=== PATIENT | female | born 2000 | race Caucasian/White ===

== ENCOUNTER 2022-05-04 13:51 | Emergency (ER) | payer OTHER, SELFPAY ==
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
[2022-05-04 13:54] VITALS: BP 125/74; PULSE 92; RESP 20; TEMP 36.6; O2SAT 100
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
[2022-05-04 14:37] LABS: Basophils Percent Auto 0.2 % (0.2-1.2); Eosinophils Percent Auto 0.2 % (0-4.4); Hematocrit 38.4 % (37.0-47.0); Immature Granulocyte Absolute 0.04 K/mm3 (0.00-0.031); Immature Granulocyte Percent A 0.4 % (0-0.5); Lymphocytes Absolute Auto 1.56 K/mm3 (0.9-3.2); Mean Corpuscular HGB Conc 33.9 g/dl (32-36); Mean Corpuscular Hemoglobin 30.5 pg (26-34); Mean Corpuscular Volume 90.1 fl (80-100); Mean Platelet Volume 9.1 fl (7.4-10.4); Monocytes Absolute Auto 0.7 K/mm3 (0.1-0.6); Monocytes Percent Auto 6.6 % (2.6-8.5); Neutrophils Absolute Auto 8.8 K/mm3 (1.3-6.7); Neutrophils Percent Auto 78.6 % (45.5-73.1); Platelet Count Result 348 k/mm3 (150-375); Red Blood Count 4.26 M/mm3 (4.2-5.4); Red Cell Distribution Width 12.8 % (11.5-14.5); White Blood Count 11.1 K/mm3 (4.5-10.0)
[2022-05-04 14:39] LABS: Add Urine Microscopic? YES; Appearance Urine Clear (Clear); Bilirubin Urine Negative (Negative); Blood Urine Negative (Negative); Color Urine Yellow (Yellow); Glucose Urine UA Negative (Negative); Ketones Urine Trace mg/dL (Negative); Leukocyte Esterase Ur Negative LEU/UL (Negative); Nitrate Urine Negative (Negative); Protein Urine 1+ mg/dL (Negative); Specific Grav Ur 1.015 (1.001-1.035); Urobilinogen Urine 0.2 mg/dL (<2.0); pH Urine 8.5 (5.0-9.0)
[2022-05-04 14:49] LABS: Mucus Urine Rare /lpf; Squamous Epithelial Cell Urine Few /hpf (Few); WBC Urine 0-3 /hpf
[2022-05-04 15:00] LABS: Amphetamine Screen Urine Negative (Negative); Barbiturate Screen Urine Negative (Negative); Benzodiazepines Screen Urine Negative (Negative); Cannabinoid Screen Urine Negative (Negative); Cocaine Screen Urine Negative (Negative); Methadone Screen Urine Negative (Negative); Opiate Screen Urine Negative (Negative); Phencyclidine Screen Urine Negative (Negative)
[2022-05-04 15:02] LABS: Alanine Aminotransferase 22 U/L (6-35); Albumin Level 5.1 g/dL (3.5-5.1); Alkaline Phosphatase 45 U/L (38-126); Anion Gap 10 mmol/L (8-16); Aspartate Amino Transferase 29 U/L (14-36); Bilirubin,Total 0.9 mg/dL (0.2-1.3); Blood Urea Nitrogen 13 mg/dL (7-17); Calcium 9.4 mg/dL (8.4-10.2); Carbon Dioxide 26 mmol/L (22-30); Chloride 106 mmol/L (98-107); Estimated CRCL calculation 94 ml/min; Estimated Glomerular Filt Rate > 60; Glucose 98 mg/dL (65-110); Potassium 3.8 mmol/L (3.4-5.0); Sodium 142 mmol/L (137-145)
[2022-05-04 15:03] LABS: Ethanol < 10 mg/dL (<10)
[2022-05-04 18:16] VITALS: BP 118/79; PULSE 84
== END 2022-05-04 18:10 | disposition home or self-care (01) ==
PROVIDERS: Emergency Provider Nurse Practitioner Family; PCP Physician Assistant
DX: S19.9XXA Unspecified injury of neck, initial encounter (principal); S80.02XA Contusion of left knee, initial encounter; M54.9 Dorsalgia, unspecified; M50.21 Other cervical disc displacement, high cervical region; V47.5XXA Car driver injured in collision with fixed or stationary object in traffic accident, initial encounter
CPT/HCPCS: 36415; 70450; 72040; 72125; 72131; 73502; 73562; 80053; 80307; 81001; 81025; 85025; 99284

== ENCOUNTER 2024-08-25 12:53 | Outpatient (CLI) | payer OTHER, SELFPAY ==
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
--- OUTSIDE RECORDS SUMMARY | 2024-08-26 05:04 | XMS_ITS | Data Portability ---
Author Organization [place] [facility]- Address # [address] [place] [address] Care Team Providers Care Drawbridge Tender Name Role Phone DERRELL MEDINA Refrigeration Mechanic Helper Assessment No assessment recorded. Plan of Treatment Reminders Order Date Submit Date Provider Last Modified By Organization Details Last Modified Time Details Appointments None recorded. [facility] test, [facility] [address], [place], [address], 9 17:18:38 rapid strep group A, throat 2018 [address], [place], [address], 9 12:04:56 [facility], [facility] [address], [place], [address], 9 15:24:52 rapid strep group A, throat 2018 019 n[facility] [address], [place], [address], 9 15:11:33 Referral None recorded. Procedures None recorded. Surgeries None recorded. Imaging None recorded. Medication Orders medroxypro gesterone 150 mg/mL intramuscu lar suspension 2018 019 [facility], [address] [place], [address], 9 15:23:15 azithromyc in 250 mg tablet 2018 [facility], [address] [place], [address], 9 14:28:56 ibuprofen 800 mg tablet 2018 [facility], [address] [place], [address], 9 14:28:51 amoxicilli n 875 mg tablet 2018 [facility], [address] [place], [address], 9 15:11:45 Tessalon Perles 100 mg capsule 2018 [facility], [address] [place] [address], [address], 9 15:11:49 Patient TargetsNo targets recorded. Patient Instructions Encounter Date Encounter Id Patient Instructions Last Modified By Organization Details Last Modified Time 02/11/2019 [id number] strep throat in teens: care instructions Not available 02/11/2019 12:04:56 05/04/2019 [id number] strep throat in teens: care instructions Not available 05/04/2019 15:11:33 Reason for Referral None Reported. Results Created Date Observation Date Name Description Value Unit Range Abnormal Flag Note LastModifiedBy Organization Detail LastModifiedTime 02/03/2002/02/2019 urina lysis , dipst ick Specific Preston >1.030 Not Available [facility] [address], [place], [address], 02/02/2019 16:17:51 02/03/20 19 02/02/2019 urina lysis , dipst ick pH 6.0 Not Available [facility] [address] [place] [address] [address], [place], [address], 02/02/2019 16:17:51 02/03/20 19 02/02/2019 urina lysis , dipst ick Leukocytes Negati ve Not Available [facility] [address] [place] [address] Dr Juarez, [place], [address], 02/02/2019 16:17:51 02/03/20 19 02/02/2019 urina lysis , dipst ick Nitrite negati ve Not Available [facility] [address] [place] [address] Dr Juarez, [place], [address], 02/02/2019 16:17:51 02/03/20 19 02/02/2019 urina lysis , dipst ick Urobilinogen 1 Not Available [facility] [address] [place] [address] Dr Juarez, [place], [address], 02/02/2019 16:17:51 02/03/20 19 02/02/2019 urina lysis , dipst ick Protein 100 Not Available [facility] [address] [place] [address] Dr Juarez, [place], [address], 02/02/2019 16:17:51 02/03/20 19 02/02/2019 urina lysis , dipst ick Blood Negati ve Not Available [facility] [address] [place] [address] Dr Juarez, [place], [address], 02/02/2019 16:17:51 02/03/20 19 02/02/2019 urina lysis , dipst ick Ketone Trace Not Available [facility] [address] [place] [address] Dr Juarez, [place], [address], 02/02/2019 16:17:51 02/03/20 19 02/02/2019 urina lysis , dipst ick Bilirubin Small Not Available [facility] [address] [place] [address] Dr Juarez, [place], [address], 02/02/2019 16:17:51 02/03/20 19 02/02/2019 urina lysis , dipst ick Glucose Negati ve Not Available [facility] [address] [place] [address] Dr Juarez, [place], [address], 02/02/2019 16:17:51 02/03/20 19 02/02/2019 urina lysis , dipst ick Appearance Clear Not Available [facility] [address] [place] [address] Dr Juarez, [place], [address], 02/02/2019 16:17:51 02/03/20 19 02/02/2019 urina lysis , dipst ick Color Yellow Not Available [facility] [address] [place] [address] Dr Juarez, [place], [address], 02/02/2019 16:17:51 02/10/20 19 02/09/2019 pregn bambi test, urine HCG negati ve Not Available [facility] [address] [place] [address] Dr Juarez, [place], [address], 02/09/2019 15:23:21 02/12/20 19 02/11/2019 rapid strep group A, throa t Result positi ve Not Available [facility] [address] [place] [address] Dr Juarez, [place], [address], 02/11/2019 11:47:13 04/15/20 19 04/15/2019 pregn bambi test, urine HCG negati ve Not Available [facility] [address] [place] [address] Dr Juarez, [place], [address], 04/15/2019 15:01:01 05/04/20 19 05/04/2019 rapid strep group A, throa t Result positi ve Not Available [facility] [address] [place] [address] Dr Juarez, [place], [address], 05/04/2019 14:57:32 Result Notes None recorded. Problems Name Problem SNOMED Code Status Onset Date Resolution Date Notes Provider Name and Address Organization Details Recorded Time Molluscu m contagio sum infectio n 59994019 Completed 02/04/[address] [place] [address], [address] , [place] [facility], 8 14:40:03 Acute sinusiti s 12592886 Completed 02/04/[address]ER[address]AND [address] [place], [place] [address], [place], [address] , [facility], 8 14:39:46 Acute conjunct ivitis 04353753 Completed 02/04/2018 SONIA BERTRAND [address] [place] [address] [address] [facility], [place], [address] , [facility], 8 14:40:08 Acute swimmer' s ear Completed 02/04/2018 SONIA BERTRAND [address] [place] [address], [place], [address] , [facility], 8 14:39:56 Acute upper respirat ory infectio n 37815126 Completed 02/04/2018 SONIA BERTRAND [address] [place] [address], [place], [address] , [facility], 8 14:40:15 Migraine without aura 71108431 Active Not Available [facility] 3 03:02:35 Contusio n of foot 18172996 Completed 02/16/2018 [place] - [facility], 8 14:43:58 Panic attack 913565054 Completed 02/04/2018 SONIA BERTRAND [address] [place] [address], [place], [address] , [facility], 8 14:39:59 Upper respirat ory infectio n 17060359 Completed 02/04/2018 SONIA BERTRAND [address] [place] [address], [address] , [facility], 8 14:40:11 Hashimot o thyroidi tis 99262768 Active 2018Sep 2018- followed by Darlyn Garrett APRN-FPA [address] [place] [address], [place], [address] , [facility], 9 14:49:45 Anxiety 49635752 Active 2018 sertralrafat cardenas prescrib ed by LOS MontelongoFPA [address] [facility] [address], [place], [address] , [place] [facility], 9 14:50:24 Problem Notes None recorded. Procedures Surgical History Date Name Laterality Status Provider Name and Address Organization Details Recorded Time 02/16/2018 I&D/SIMPLE completed Sarai Campos [facility], 02/16/2018 17:02:18 Imaging Results None recorded. Procedure Notes None recorded. Medical Equipment None Reported. Allergies No known drug allergies Medications Name Sig Start Date Stop Date Status Note LastModified by Organization Details LastModified Time amoxicilli n 500 mg capsule Take 1 capsule twice a day by oral route for 14 days. 02/04 completed Not Available Not Available Not Available Aviane 0.1 mg-20 mcg tablet TAKE 1 TABLET BY MOUTH ONCE DAILY 02/09 completed Not Available Not Available Not Available clindamyci n HCl 300 mg capsule Take 1 capsule every 6 hours by oral route for 7 days. 08/06 completed Not Available Not Available Not Available cetirizine 10 mg tablet TAKE 1 TABLET BY MOUTH ONCE DAILY active Not Available Not Available No t Available azithromyc in 250 mg tablet TAKE 2 TABLETS (500 MG) BY ORAL ROUTE ONCE DAILY FOR 1 DAY THEN 1 TABLET (250 MG) BY ORAL ROUTE ONCE DAILY FOR 4 DAYS 04/15 completed Not Available Not Available Not Available ibuprofen 800 mg tablet Take 1 tablet 3 times a day by oral route as needed for 7 days. 04/15 completed Not Available Not Available Not Available naproxen 250 mg tablet Take 1 tablet twice a day by oral route. 10/24 completed Not Available Not Available Not Available dexmethylp henidate 5 mg tablet active Not Available Not Available No t Available levothyrox ine 25 mcg tablet active Not Available Not Available Not Available dexmethylp henidate 10 mg tablet active Not Available Not Available Not Available Tessalon Perles 100 mg capsule Take 1 capsule 3 times a day by oral route as needed for 5 days. 2018 active Not Available Not Available Not Avai lable propranolo l 10 mg tablet active Not Available Not Available Not Available amoxicilli n 875 mg tablet Take 1 tablet every 12 hours by oral route for 10 days. 2018 active Not Available Not Available Not Avai lable Geodon 40 mg capsule active Not Available Not Available N ot Available carbamazep ine ER 200 mg tablet,ext ended release,12 hr active Not Available Not Available Not Available fluoxetine 20 mg tablet Take 2 tablets every day by oral route for 30 days. 02/04 completed Not Available Not Available Not Available ibuprofen 400 mg tablet 09/17 completed Not Available Not Available Not Available guanfacine 1 mg tablet active Not Available Not Available Not Available mirtazapin e 45 mg tablet active Not Available Not Available Not Available montelukas t 10 mg tablet Take 1 tablet every day by oral route for 30 days. 04/15 completed Not Available Not Available Not Available hydroxyzin e HCl 25 mg tablet TAKE 1 TABLET BY MOUTH EVERY 8 HOURS NEEDED 08/06 completed Not Available Not Available Not Available mupirocin 2 % topical ointment APPLY A SMALL AMOUNT TO THE AFFECTED AREA BY TOPICAL ROUTE 3 TIMES PER DAY for 5 days active Not Available Not Available No t Available mirtazapin e 15 mg tablet active Not Available Not Available Not Available azelastine 137 mcg (0.1 %) nasal spray USE 1 SPRAY(S) IN EACH NOSTRIL TWICE DAILY DIRECTED active Not Available Not Available No t Available Cheratussi n AC 10 mg-100 mg/5 mL oral liquid 09/17 completed Not Available Not Available Not Available methylphen idate ER 18 mg tablet,ext ended release 24 hr Take 1 tablet every day by oral route for 30 days. 10/24 completed Not Available Not Available Not Available naproxen sodium 275 mg tablet 09/17 completed Not Available Not Available Not Available fluticason e propionate 50 mcg/actuat ion nasal spray,susp ension USE 2 SPRAY(S) IN EACH NOSTRIL ONCE DAILY active Not Available Not Available No t Available sertraline 50 mg tablet active Not Available Not Available Not Available medroxypro gesterone 150 mg/mL intramuscu lar suspension Inject 1 mL every 3 months by intramusc ular route. active Not Available Not Available No t Available methylphen idate ER 27 mg tablet,ext ended release 24 hr Take 1 tablet every day by oral route for 30 days. 02/04 completed Not Available Not Available Not Available escitalopr am 10 mg tablet TAKE 1 TABLET BY MOUTH ONCE DAILY active Not Available Not Available No t Available Sprintec (28) 0.25 mg-35 mcg tablet Take 1 tablet every day by oral route. 02/02 completed Not Available Not Available Not Available Ciprodex 0.3 %-0.1 % ear drops,susp ension Instill 4 drops into affected ear(s) 2 times per day for 7 days active Not Available Not Available No t Available Focalin XR 10 mg capsule,ex tended release active Not Available Not Available Not Available Remeron active Not Available Not Avail able Not Available Focalin XR active Takes 5mg in the aftern oon. Not Available Not Available Not Available Focalin XR 15 mg capsule,ex tended release Take 1 capsule every day by oral route. active Not Available Not Available No t Available Creon 24,000-76, 000-120,00 0 unit capsule,de layed release 04/15 completed Not Available Not Available Not Available Moxeza 0.5 % eye drops Instill 1 drop twice a day by ophthalmi c route for 7 days. 01/17 completed Not Available Not Available Not Available Vitals Date Recorded Body height Body temperature Body mass index (BMI) Percentile per age and sex Body mass index (BMI) Body weight Heart rate Respiratory rate Systolic blood pressure Diastolic blood pressure Provider Name and Address Organization Details Last Updated DateTime 9 161.29 cm 97.5 [degF] 10 % 18.3 kg/m2 84781.2 g 80 /min 16 /min 108 mm[Hg] 66 mm[Hg] JAZMIN Vincent [address] [place] [address], [address] [place] [address] [facility], 9 14:39:41 Date Recorded Body height Body mass index (BMI) Body mass index (BMI) Percentile per age and sex Body weight Body temperature Heart rate Respiratory rate Systolic blood pressure Diastolic blood pressure Provider Name and Address Organization Details Last Updated DateTime 9 161.29 cm 18 kg/m2 7 % 97786.0 1 g 98.9 [degF] 92 /min 20 /min 112 mm[Hg] 72 mm[Hg] N[facility] 9 11:45:44 Date Recorded Body height Heart rate Respiratory rate Body mass index (BMI) Body mass index (BMI) Percentile per age and sex Body weight Body temperature Systolic blood pressure Diastolic blood pressure Provider Name and Address Organization Details Last Updated DateTime 9 161.29 cm 88 /min 20 /min 17.4 kg/m2 3 % 45100.2 4 g 98.4 [degF] 104 mm[Hg] 66 mm[Hg] [facility] 14:34:57 Date Recorded Body height Respiratory rate Body mass index (BMI) Percentile per age and sex Body mass index (BMI) Body weight Heart rate Body temperature Systolic blood pressure Diastolic blood pressure Provider Name and Address Organization Details Last Updated DateTime 9 161.29 cm 16 /min 1 % 16.7 kg/m2 33752.8 7 g 96 /min 99.2 [degF] 108 mm[Hg] 76 mm[Hg] Maria Guadalupe Rueda [facility] 9 14:57:06 Date Recorded Body height Body temperature Heart rate Respiratory rate Body mass index (BMI) Percentile per age and sex Body mass index (BMI) Body weight Oxygen saturation Oxygen saturation in Arterial blood by Pulse oximetry Systolic blood pressure Diastolic blood pressure Provider Name and Address Organization Details Last Updated DateTime 9 161.29 cm 97.9 [degF] 74 /min 20 /min 3 % 17.4 kg/m2 08106.2 4 g 97 % 97 % 106 mm[Hg] 72 mm[Hg] [facility] 14:22:57 Social History Question Answer Notes LastModified by Organizat ion Details LastModified Time Tobacco Smoking Status Never Smoker JAZMIN Vincent [address] [place] [address], [address], [facility], 03/24/2014 16:22:22 What Is Your Level Of Alcohol Consumption? None Information not available 03/24/2014 Animal Exposure? Yes 2 Dogs, 1cat Information not available 02/10/2012 Which Illicit Or Recreational Drugs Have You Used? None Information not available 03/24/2014 Have There Been Any Changes To Your Family Or Social Situation? No Information not available 03/24/2014 Are There Any Guns Present In Your Home? No Information not available 02/10/2012 What Is Your Home Situation? Both Parents Information not available 02/10/2012 Do You Use Insect Repellent Routinely? Yes Information not available 02/10/2012 What Was The Date Of Your Most Recent Tobacco Screening? 08/06/2018 Information not available 02/23/2019 What Is Your Parents' Marital Status? Information not available 02/10/2012 What Is The Name Of Your School? Getting GED Information not available 02/04/2018 Do You Use Your Seat Belt Or Car Seat Routinely? Yes Information not available 02/10/2012 Do You Have Any Siblings? 1 Sister Sister Lives Outside Of Home Information not available 02/04/2018 Do You Have Smoke And Carbon Monoxide Detectors In Your Home? Yes Information not available 02/10/2012 Are You Passively Exposed To Smoke? No Information not available 02/10/2012 Do You Use Sunscreen Routinely? Yes Information not available 02/10/2012 How Many Years Have You Smoked Tobacco? 0 Information not available 03/24/2014 Year In School 12 Informatio n not available 02/04/2018 Sex: Unknown Functional Status Question Answer Note LastModified by Organizat ion Details LastModified Time What is your exercise level? Occasional Information not available 02/04/2018 Mental Status None recorded. Family History Relationship Description Onset Age of this Age Resolved Age Notes LastModified by Organization Details LastModified Time Mother Hypertensive disorder previo usly record ed as High blood pressu re [email or web address] Not available 03/28/2015 15:16:40 Maternal Grandmother Type 2 diabetes mellitus without complication [email or web address] Not available 15:16:40 Father Hypertensive disorder previo usly record ed as High blood pressu re [email or web address] Not available 03/28/2015 15:16:40 Medical History Condition Response Diabetes N Other Developmental Delay N Bedwetting N ER or UC Visits Y Asthma / Wheezing N Skin problems N Frequent Ear Infections N Nasal Allergies N Hospitalizations N Frequent Headaches N ADD or ADHD Y Broken bones N Allergies N ear or hearing problems N Sleep Problems / Snoring N Concerns with Hearing or Vision N Constipation N Murmur / Cardiac N Albuterol / Nebulizer N Serious Injuries N History of UTI N Gynecological HistoryNo gynecological history recorded. Obstetrics History GPAL:G 0 P 0 0 0 0 Immunizations Vaccine Type Date Status Note Provider Nam e and Address Organization Details Recorded Time Hep A, ped/adol, 2 dose 3 completed Not Available [facility] 08/20/2019 02:12:00 IPV 2 completed Alisha Triplett null, [place] [facility], 01/30/2012 14:12:51 IPV 6 completed [place] [facility], 01/30/2012 14:12:51 DTaP 1 completed Alisha Triplett [place], [place] [facility], 01/30/2012 14:12:51 pneumococcal, unspecified formulation 1 completed Alisha Triplett [place] [facility], 01/30/2012 14:12:51 Hep B, unspecified formulation 0 completed Alisha Triplett [place] [facility], 01/30/2012 14:12:51 MMR 6 completed Alisha Triplett [place] [facility], 01/30/2012 14:12:51 pneumococcal, unspecified formulation 1 completed Al[place] Triplett [place] [facility], 01/30/2012 14:12:51 MMR 2 completed Alisha Triplett [place] [facility], 01/30/2012 14:12:51 Influenza, live, trivalent, intranasal 8 completed Alisha [place]tt [place] [facility], 01/30/2012 14:12:51 Hep B, unspecified formulation 0 completed Al[place] [facility], 01/30/2012 14:12:51 Hib, unspecified formulation 1 completed Al[place] Triplett [place] [facility], 01/30/2012 14:12:51 DTaP 1 completed Al[place] Triplett [place] [facility], 01/30/2012 14:12:51 pneumococcal, unspecified formulation 1 completed [place] [facility], 01/30/2012 14:12:51 IPV 1 completed [place] [facility], 01/30/2012 14:12:51 Hib, unspecified formulation 1 completed [place] [facility], 01/30/2012 14:12:51 Hib-Hep B 1 completed [place] [facility], 01/30/2012 14:12:51 Hib, unspecified formulation 2 completed [place] [facility], 01/30/2012 14:12:51 DTaP 6 completed [place] [facility], 01/30/2012 14:12:51 DTaP 2 completed [place] [facility], 01/30/2012 14:12:51 pneumococcal, unspecified formulation 2 completed [place] [facility], 01/30/2012 14:12:51 varicella 2 completed Al[place] Rtiplett [place] [facility], 01/30/2012 14:12:51 IPV 1 completed [place] [facility], 01/30/2012 14:12:51 DTaP 1 completed [place] [facility], 01/30/2012 14:12:51 Meningococcal MCV4O 8 completed Not Available [facility] 08/20/2019 02:13:08 Tdap 2 completed [facility] 08/20/2019 02:11:49 Hep A, ped/adol, 2 dose 2 completed Not Available [facility] 08/20/2019 02:11:59 Meningococcal MCV4O 2 completed Not Available [facility] 08/20/2019 02:12:14 varicella 2 completed Not Available [facility] 08/20/2019 02:11:53 Past Encounters Encounter ID Performer Location Encounter Start Date Encounter Closed Date Diagnosis/Indication Diagnosis SNOMED-CT Code Diagnosis ICD10 Code Diagnosis Note [id number] [address] [place], [place] [address] 01/03/2011 15:26:56 01/03/2011 16:28:14 [id number] [facility] [place] [address] 04/11/2011 09:33:12 04/14/2011 14:24:09 [id number] [facility] [place] [address] 12/12/2011 17:49:10 12/18/2011 12:40:49 [id number] Nona Mojica [facility] [address] [place] [address] 01/02/2012 14:30:19 01/07/2012 15:01:03 [id number] [facility] [place] [address] 02/10/2012 15:10:01 02/11/2012 14:36:50 [id number] Xiomara Griffin [facility] [place] [address] 03/08/2013 14:01:24 03/12/2013 11:47:17 [id number] Xiomara Griffin [facility] [address] [place] [address] 11/04/2013 13:55:38 11/05/2013 09:28:55 Contusion of foot [id number] Follow-up encounter [id number] [facility] [place] [address] 03/24/2014 16:08:38 03/27/2014 10:19:30 Well child [id number] Xiomara Griffin [facility] [address] [place] [address] 05/18/2014 10:22:30 05/19/2014 09:28:40 Panic attack [id number] SONIA BERTRAND [facility] [address] [place] [address] 08/30/2014 15:44:02 08/31/2014 15:21:02 Acute upper respiratory infection [id number] Upper resp iratory infection [id number] [facility] [address] [place] [address],[facility] [address] [place] [address] 03/28/2015 14:58:29 03/29/2015 12:04:41 Well child [id number] Sarai Campos [facility] [address] [place] [address],[facility] [address] [place] [address] 09/17/2016 13:56:14 09/22/2016 09:24:24 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 Will start methylphen idate ER 18 mg. Discussed how to take, side effects. Call in 1 week with update. May need to increase med at thiat time. Followup to office in 6 months. [id number] SONIA BERTRAND [facility] [address] [place] [address],[address] [address] 10/15/2016 11:12:31 10/16/2016 13:34:28 Pain of nose 672178657 J34.89 Nose pain s/p contusion to nose less than one week ago. Patient was hanging out of her car window and came up and hit the outside of her car door . No LOC. No epitaxis. Used motrin x1 without relief. Education given. Safety discussed. RICE therapy recommende d. [id number] [facility]AND [facility] [address] [place] [address],[address] [address] 10/24/2016 11:19:55 10/25/2016 10:18:34 Generalized anxiety disorder [id number] F41.1 Anxiety:Co unseling strongly advised. Written education given regarding medication s, hydration, side effects and effectiven ess. Follow up in 3 weeks without fail. Acute sinusitis [id number] J01.90 ? Sinusitis- Symptoms greater than 2 weeks with fever. Take oral antibiotic s as written. Rest. Drink plenty of fluids. F/U if no improvemen t in 48-72 hours. May have Tylenol or Ibuprofen for fever. May use nasal saline to relieve congestion . May have honey based cough syrup as needed for cough. [id number] [facility] [address] [place] [address],[address] [address] 02/04/2018 14:04:04 02/08/2018 09:17:02 Well child [id number] Z00.129 Well adolescent - appropriat e for growth and developmen tTrinh charles guidance was given to patient/aly collins. RTC in 1 year for next routine visit. I discussed with the parent the recommende d immunizati ons for the patient today; all questions were answered and the informatio nal handout was given. Also encouraged routine physical activity on a daily basis (at least 1 hour minimum per day). Proper dietary habits were discussed. Breast self exam discussed. Discussed need to finish GRE. Declined HPV today. Initial pr escription of oral contraception [id number] Z30.011 Control: Patient wishes to start oral control with this cycle. Patient instructed to start pills on thursday after start of menses. Patient instructed to use back up method the first week of starting the pill. Patient education given regarding prevention of STDs. Patient verbalized understand ing. Anxiety disorder [id number] F41.9 Intermitte nt anxiety attacks. Has tried depression medication without resolve. Strongly suggested counseling . Will trial new med, prn. [id number] [facility] [address] [place] [phone] 02/16/2018 14:05:25 02/17/2018 16:02:08 Abscess of axilla [id number] L02.411 Simple I&D done in office, see procedure note. Wash well with soap and water, apply Mupirocin twice daily. Clindamyci n as prescribed . Culture sent, will call with results. Ibuprofen for pain. Call with any new concerns or no improvemen t. [id number] Derrell Medina [facility] [address] [place] [address],[address] [address] 08/06/2018 16:52:58 08/09/2018 17:39:43 Acute upper respiratory infection [id number] J06.9 Mild sx, care as needed. Acne 33896869 L70.9 Large zit in R outer ear as source of her discomfort . Reactive lymphadenopathy [id number] R59.1 Due to URI and ear lesion. Will recheck in 3 weeks. Abnormal weight loss [id number] R63.4 She will increase intake and keep track on a calorie tracker ap, then RTC in 3 weeks to recheck. If not gaining, plan labs as she is down more than 10 lbs. 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 UA was unremarkab le - no culture sent. Suspicious for scoliosis on exam. Spinal series ordered (printed and given to patient). Recommende d heat/ice for 20 minutes multiple times a day, rest, and ibuprofen every 6 hours as needed for pain. Would refer to ortho with degree of curvature of greater than 20. Patient also requesting to start depo and wanting a one time refill on ritalin for test anxiety - recommende d f/u appointmen ts to further discuss. Thoracic back pain [id number] M54.6 [id number] [facility] [address] [place] [phone] 3 02/09/2019 14:29:04 03/15/2019 09:39:27 Uses depot contraception [id number] Z30.013 Control: Patient wishes to start oral control with this cycle. Discussed all control options. Patient education given regarding prevention of STDs. Patient verbalized understand ing. [id number] [facility] [address] [place] [phone] 3 02/11/2019 11:18:16 02/15/2019 09:21:36 Streptococcal sore throat 43985376 J02.0 Strep Throat: Take antibiotic s as written. Drink plenty of fluids. Purchase a new toothbrush in 48 hours after starting antibiotic s. Call the office if symptoms do not improve in 48-72 hours. Take Tylenol or Motrin for pain/fever . [id number] [facility] [address] [place] [address] [address] [place] [address] 04/15/2019 14:13:56 04/18/2019 17:19:11 Nausea [id number] R11.0 No emesis, exam is reassuring . Recommend bland diet, RTC if changes or worsening. [id number] LOS [facility]ANDFPA [facility] [address] [place] [phone] 3 05/04/2019 14:35:12 05/05/2019 10:00:08 Streptococcal sore throat [id number] J02.0 Strep Throat: Take antibiotic s as written. Drink plenty of fluids. Purchase a new toothbrush in 48 hours after starting antibiotic s. Call the office if symptoms do not improve in 48-72 hours. Take Tylenol or Motrin for pain/fever . [id number] Derrell Medina MD [facility] [address] [place] [phone] 3 05/06/2019 14:13:50 05/09/2019 11:41:17 Streptococcal sore throat 26660168 J02.0 Strep Throat: continue to take antibiotic s as written and symptom care as needed. Drink plenty of fluids. See back Thursday if having any fevers by then. Health Concerns Section Related Observation LastModified by Organization Detai ls LastModified Time None Recorded Concern Status LastModified by Organization Details LastModified Time None Recorded Advance Directives Directive None Recorded Payers Encounter Date Sequence Insurance Name Policy Number Policy Casanova Covered Member ID Casanova Member ID Guarantor Name 02/09/2019 1 [employer] [place] ([place]ICA[place]) [id number] Rogelio Horn [id number] Silas Horn 02/11/2019 1 [employer] [place] [id number] Rogelio Horn [id number] Silas Horn 04/15/2019 1 [employer] [place] [id number] 0003 Rogelio Horn [id number] Silas Horn 05/04/2019 1 [employer] [place] [id number] 0003 Rogelio Horn [id number] Silas Horn 05/06/2019 1 [employer] [place] ([place]) [id number] 0003 Rogelio Horn [id number] Silas Horn Notes Date Note Type Note Provider Name and Address Organization Details Recorded Time 02/09/2019 text/html Here to discuss depo. Here with mother. Sexually active. Does not want to get - and would like to discuss options. Uses condoms- occasionally. Denies STD's or STD like symptoms. Denies fever. Not good at taking pills on a regular basis- forgetful. SONIA BERTRAND [address] [facility] [address], [place], [address], [facility], 03/10/2019 13:54:19 02/11/2019 text/html Sore ThroatRepor sabrina bypatient.Throat Symptomshurts to swallow Upper respiratory symptomscough;nasal congestion/stuffy nose;nasal discharge Duration:started (sx's started yesterday.) Feverno fever (does not know.) Vomitingvomiting diarrheano diarrhea Headacheheadache Abdominal painabdominal pain SONIA BERTRAND [address] [facility] [address], [place], [address], [facility], 02/11/2019 12:05:05 04/15/2019 text/html Generic HPI TemplateReported bypatient.Notes:Here with self. Patient states she has been having abdominal pain on and off for a few weeks, patient complains of pain around umbilicus, states pain is aching (pain is 5/10 on scale) Good Po intake and UOP. Patient states she was nauseated yesterday but could not throw up. Denies vomiting or fevers. Pt states having increase in BM, has been having about 5-6 episodes daily, stool is soft brown. Denies blood. SONIA DEAL [address] [facility] [address], [place], [address], [facility], 04/15/2019 15:24:58 05/04/2019 text/html Sore ThroatRepor sabrina bypatient.Throat Symptomshurts to swallow Upper respiratory symptomscough;nasal congestion/stuffy nose;nasal discharge Duration:1 days Feverno fever Vomitingno vomiting diarrheano diarrhea Headacheheadache Abdominal painabdominal pain Context:normla sleep; normal appetite SONIA BERTRAND [address] [facility] [address], [place], [address], [facility], 05/04/2019 15:11:41 05/06/2019 text/html Upper Respirator y SymptomsReported bypatient.Location:[facility] Quality:cough;congeste d;hacking cough;hurts to swallow;throat pain Severity:mild Onset/Timing:gradual; actual date: (thursday) Context:no sick contacts; no foreign travel; non-smoker Modifying Factors:OTC medication (amoxicillin and motrin) Associated Symptoms:no vomiting; no diarrhea; no rash; no nausea;shortness of breath;difficulty breathing at night;sore throat; appetite normal; normal sleepNotes:here with self. Patient states she started to have URI sxs on thursday, patient was seen on thursday and tested + for strep and placed on amox which she is is currently taking bid. Patient states she had cough and congestion as well. Denies fevers/N/V/D. Good Po intake and UOP. Patient taking motrin for pain control, but no other symptom relief meds. Increased napping, bad MACHADO, some weakness. Not getting better and that concerns her. Derrell Medina MD [address] [facility] [address], [place], [address], [facility], 05/06/2019 14:42:50 OBGyn Episode No OBEpisode recorded.
== END 2024-08-25 12:54 | disposition home or self-care (01) ==
LOC: ANHIMG 12:55
PROVIDERS: Visit Provider Student in an Organized Health Care Education/Training Program
DX: N93.9 Abnormal uterine and vaginal bleeding, unspecified (principal)
CPT/HCPCS: 76830; 76856

== ENCOUNTER 2024-10-10 12:30 | Outpatient (CLI) | payer OTHER, SELFPAY ==
[2024-10-10 14:00] LABS: Free T4 Free Thyroxine 0.82 ng/dL (0.78-2.19)
--- OUTSIDE RECORDS SUMMARY | 2024-10-10 14:24 | XMS_ITS | Encounter Summary ---
Author Organization [facility] Healthcare Address [address] [place] [address] Care Team Providers Care Costing Analyst Name Role Phone Anjelica Vasquez MD Unavailable Geraldine Bauman Primary Care Provi chester Tremayne Lo PT Unavailable Unavailable Encounter Details Date Type Department Care Team (Late st Contact Info) Description 01/02/2023 Community Orders [facility] EpicCare Link Geraldine Bauman PA [address] [place] [address] Cervical mass (Primary Dx) Social History Tobacco Use Types Packs/Day Years Used Date Smoking Tobacco: Never Smokeless Tobacco: Never Alcohol Use Standard Drinks/Week Comments Never 0 (1 standard drink = 0.6 oz pur e alcohol) AUDIT-C Answer Date Recorded Q1: How often do you have a drink containing alc ohol? Never 12/07/2019 Average Number of Drinks Not on file 020 Frequency of Binge Drinking Not on file 01/2020 PHQ-2 Answer Date Recorded PHQ-2 Total Score (If total score is 3 or more points, staff should administer the PHQ-9) 0 05/07/2021 Comments No Sex and Gender Information Value Date Recorded Sex Assigned at Not on file Legal Sex Female 11:11 AM CODING QUALITY COORDINATOR Gender Identity Not on file Sexual Orientation Not on file documented as of this encounter Plan of Treatment Not on file documented as of this encounter Visit Diagnoses Diagnosis Cervical mass- Primary Other specified noninflammatory disorder of cervix documented in this encounter Additional Health Concerns Infection Onset Date Last Indicated Resolved Time COVID: Suspected 09/09/2023 09/09/2023 09/09/2023 9:19 PM CODING QUALITY COORDINATOR COVID: Suspected 11/02/2023 11/02/2023 11/02/2023 12:32 PM CDT COVID: Suspected 11/02/2023 11/02/2023 11/02/2023 8:08 PM CDT documented as of this encounter Care Teams Costing Analyst Relationship Specialty Start Date End Date Geraldine Bauman PA [address] [place] [address] PCP - General 10/12/21 Anjelica Vasquez MD Endocrinology 12/07/19 Tremayne Lo PT Physical Therapist Physical Therapy 06/20/22 documented as of this encounter
--- OUTSIDE RECORDS SUMMARY | 2024-10-10 14:24 | XMS_ITS | Data Portability ---
Author Organization [place] - [facility]- Address # [address] [place] [address] Care Team Providers Care Press Tender Name Role Phone DERRELL MEDINA Salvage Diver Assessment No assessment recorded. Plan of Treatment Reminders Order Date Submit Date Provider Last Modified By Organization Details Last Modified Time Details Appointments None recorded. Lab rapid strep group A, throat [email or web address], [address], [place], [address], 9 15:11:33 test, urine [address], [place], [address], 9 15:24:52 rapid strep group A, throat 2018 [address] [facility] [address], [place], [address], 9 12:04:56 test, urine 2018 019 [facility], [place], [address], 9 17:18:38 Referral None recorded. Procedures None recorded. Surgeries None recorded. Imaging None recorded. Medication Orders amoxicilli n 875 mg tablet 2018 019 INTERFACE [facility], [address] [place], [address], 9 15:11:45 Transalchristiano Perles 100 mg capsule 2018 019 [facility], [address] [place], [address], 9 15:11:49 azithromyc in 250 mg tablet 2018 019 [facility], [address] [place], [address], 9 14:28:56 ibuprofen 800 mg tablet 2018 019 [facility], [address] [place], [address], 9 14:28:51 medroxypro gesterone 150 mg/mL intramuscu lar suspension 2018 [facility], [address] [place] [address], [address], 9 15:23:15 Patient TargetsNo targets recorded. Patient Instructions Encounter Date Encounter Id Patient Instructions Last Modified By Organization Details Last Modified Time 02/11/2019 [id number] strep throat in teens: care instructions Not available 02/11/2019 12:04:56 05/04/2019 [id number] strep throat in teens: care instructions Not available 05/04/2019 15:11:33 Reason for Referral None Reported. Results Created Date Observation Date Name Description Value Unit Range Abnormal Flag Note LastModifiedBy Organization Detail LastModifiedTime 02/03/2002/02/2019 urina lysis , dipst ick Specific Bigelow >1.030 Not Available [facility] [address] [place] [address] [address], [place], [address], 02/02/2019 16:17:51 02/03/20 19 02/02/2019 urina lysis , dipst ick pH 6.0 Not Available [facility] [address] [place] [address] [address], [place], [address], 02/02/2019 16:17:51 02/03/20 19 02/02/2019 urina lysis , dipst ick Leukocytes Negati ve Not Available [facility] [address] [place] [address] Dr Juarez, [place], [address], 02/02/2019 16:17:51 02/03/20 19 02/02/2019 urina lysis , dipst ick Nitrite negati ve Not Available [facility] [address] [place] [address] Dr Juarez, [place], [address], 02/02/2019 16:17:51 02/03/20 19 02/02/2019 urina lysis , dipst ick Urobilinogen 1 Not Available [facility] [address] [place] [address] Dr Juarez, [place], [address], 02/02/2019 16:17:51 02/03/20 19 02/02/2019 urina lysis , dipst ick Protein 100 Not Available [facility] [address] [place] [address] Dr Juarez, [place], [address], 02/02/2019 16:17:51 02/03/20 19 02/02/2019 urina lysis , dipst ick Blood Negati ve Not Available [facility] [address] [place] [address] Dr Juarez, [place], [address], 02/02/2019 16:17:51 02/03/20 19 02/02/2019 urina lysis , dipst ick Ketone Trace Not Available [facility] [address] [place] [address] Dr Juarez, [place], [address], 02/02/2019 16:17:51 02/03/20 19 02/02/2019 urina lysis , dipst ick Bilirubin Small Not Available [facility] [address] [place] [address] Dr Juarez, [place], [address], 02/02/2019 16:17:51 02/03/20 19 02/02/2019 urina lysis , dipst ick Glucose Negati ve Not Available [facility] [address] [place] [address] Dr Juarez, [place], [address], 02/02/2019 16:17:51 02/03/20 19 02/02/2019 urina lysis , dipst ick Appearance Clear Not Available [facility] [address] [place] [address] Dr Juarez, [place], [address], 02/02/2019 16:17:51 02/03/20 19 02/02/2019 urina lysis , dipst ick Color Yellow Not Available [facility] [address] [place] [address] Dr Juarez, [place], [address], 02/02/2019 16:17:51 02/10/20 19 02/09/2019 pregn bambi test, urine HCG negati ve Not Available [facility] [address] [place] [address] Dr Juarez, [place], [address], 02/09/2019 15:23:21 02/12/20 19 02/11/2019 rapid strep group A, throa t Result positi ve Not Available [facility] [address] [place] [address] Dr Juarez, [place], [address], 02/11/2019 11:47:13 04/15/20 19 04/15/2019 pregn bambi test, urine HCG negati ve Not Available [facility] [address] [place] [address] Dr Juarez, [place], [address], 04/15/2019 15:01:01 05/04/20 19 05/04/2019 rapid strep group A, throa t Result positi ve Not Available [facility] [address] [place] [address] Dr Juarez, [place], [address], 05/04/2019 14:57:32 Result Notes None recorded. Problems Name Problem SNOMED Code Status Onset Date Resolution Date Notes Provider Name and Address Organization Details Recorded Time Molluscu m contagio sum infectio n 74579069 Completed 02/04/[address]AND [address] [place] [address], [address] , [place] [facility], 8 14:40:03 Acute sinusiti s 32589602 Completed 02/04/[address]TRAND [address] [place], [place] [address], [place], [address] , [facility], 8 14:39:46 Acute conjunct ivitis 04926613 Completed 02/04/2018 SONIA BERTRAND [address] [place] [address] [address] [facility], [place], [address] , [facility], 8 14:40:08 Acute swimmer' s ear Completed 02/04/[address]TRAND [address] [place] [address], [place], [address] , [facility], 8 14:39:56 Acute upper respirat ory infectio n 32079408 Completed 02/04/2018 SONIA BERTRAND [address] [place] [address], [place], [address] , [facility], 8 14:40:15 Migraine without aura 11972231 Active Not Available [facility] 3 03:02:35 Contusio n of foot 71976731 Completed 02/16/2018 [place] [facility], 8 14:43:58 Panic attack 681809951 Completed 02/04/2018 SONIA BERTRAND [address] [place] [address], [place], [address] , [facility], 8 14:39:59 Upper respirat ory infectio n 94234599 Completed 02/04/2018 SONIA BERTRAND [address] [place] [address], [address] , [facility], 8 14:40:11 Hashimot o thyroidi tis 51469824 Active 2018Sep 2018- followed by Darlyn Garrett APRN-FPA [address] [place] [address], [place], [address] , [facility], 9 14:49:45 Anxiety 06105481 Active 2018 sertralrafat cardenas prescrib ed by LOS MontelongoFPA [address] [facility] [address], [place], [address] , [place] [facility], 9 14:50:24 Problem Notes None recorded. Procedures Surgical History Date Name Laterality Status Provider Name and Address Organization Details Recorded Time 02/16/2018 I&D/SIMPLE completed Sarai Campos [facility], 02/16/2018 17:02:18 Imaging Results None recorded. [...] cm 97.5 [degF] 10 % 18.3 kg/m2 49283.2 g 80 /min 16 /min 108 mm[Hg] 66 mm[Hg] JAZMIN Vincent [address] [place] [address], [address] [place] [address] [facility], 9 14:39:41 Date Recorded Body height Body mass index (BMI) Body mass index (BMI) Percentile per age and sex Body weight Body temperature Heart rate Respiratory rate Systolic blood pressure Diastolic blood pressure Provider Name and Address Organization Details Last Updated DateTime 9 161.29 cm 18 kg/m2 7 % 33970.0 1 g 98.9 [degF] 92 /min 20 /min 112 mm[Hg] 72 mm[Hg] Nona Mojica [facility], 9 11:45:44 Date Recorded Body height Heart rate Respiratory rate Body mass index (BMI) Body mass index (BMI) Percentile per age and sex Body weight Body temperature Systolic blood pressure Diastolic blood pressure Provider Name and Address Organization Details Last Updated DateTime 9 161.29 cm 88 /min 20 /min 17.4 kg/m2 3 % 72195.2 4 g 98.4 [degF] 104 mm[Hg] 66 mm[Hg] [facility] 9 14:34:57 Date Recorded Body height Respiratory rate Body mass index (BMI) Percentile per age and sex Body mass index (BMI) Body weight Heart rate Body temperature Systolic blood pressure Diastolic blood pressure Provider Name and Address Organization Details Last Updated DateTime 9 161.29 cm 16 /min 1 % 16.7 kg/m2 19003.8 7 g 96 /min 99.2 [degF] 108 mm[Hg] 76 mm[Hg] Maria Guadalupe Rueda [facility], 9 14:57:06 Date Recorded Body height Body [...] /min 20 /min 3 % 17.4 kg/m2 45683.2 4 g 97 % 97 % 106 mm[Hg] 72 mm[Hg] [facility]gelia [facility], 9 14:22:57 Social History Question Answer Notes LastModified by Organizat ion Details LastModified Time Tobacco Smoking Status Never Smoker JAZMIN Vincent [address] [place] [address], [address], [facility], 03/24/2014 16:22:22 What Is Your Level [...] record ed as High blood pressu re [email or web address] Not available 03/28/2015 15:16:40 Maternal Grandmother Type 2 diabetes mellitus without complication [email or web address] Not available 15:16:40 Father Hypertensive disorder previo usly record ed as High blood pressu re [email or web address] Not available 03/28/2015 15:16:40 Medical History Condition [...] ped/adol, 2 dose 3 completed Not Available [facility] 08/20/2019 02:12:00 IPV 2 completed Alisha Triplett [place], [place] [facility], 01/30/2012 14:12:51 IPV 6 completed Al[place] [facility], 01/30/2012 14:12:51 DTaP 1 completed Alisha Triplett [place], [place] [facility], 01/30/2012 14:12:51 pneumococcal, unspecified formulation 1 completed Alisha Triplett [place] [facility], 01/30/2012 14:12:51 Hep B, unspecified formulation 0 completed Alisha Triplett [place] [facility], 01/30/2012 14:12:51 MMR 6 completed Alisha Triplett [place] [facility], 01/30/2012 14:12:51 pneumococcal, unspecified formulation 1 completed Alisha Triplett [place] [facility], 01/30/2012 14:12:51 MMR 2 completed Alisha Triplett [place] [facility], 01/30/2012 14:12:51 Influenza, live, trivalent, intranasal 8 completed Alisha Triplett [place], [place] [facility], 01/30/2012 14:12:51 Hep B, unspecified formulation 0 completed Alisha Triplett [place] [facility], 01/30/2012 14:12:51 Hib, unspecified formulation 1 completed Alisha Triplett [place], [place] [facility], 01/30/2012 14:12:51 DTaP 1 completed Alisha Triplett [place], [place] [facility], 01/30/2012 14:12:51 pneumococcal, [...] [facility]LIM[facility], 01/30/2012 14:12:51 varicella 2 completed [place] [facility], 01/30/2012 14:12:51 IPV 1 completed [place] [facility], 01/30/2012 14:12:51 DTaP 1 completed Al[place] [facility], 01/30/2012 14:12:51 Meningococcal MCV4O 8 completed Not Available [facility] 08/20/2019 02:13:08 Tdap 2 completed Not Available [facility] 08/20/2019 02:11:49 Hep A, ped/adol, 2 dose 2 completed Not Available [facility] 08/20/2019 02:11:59 Meningococcal MCV4O 2 completed Not Available [facility] 08/20/2019 02:12:14 varicella 2 completed Not Available [facility] 08/20/2019 02:11:53 Past Encounters Encounter ID Performer Location Encounter Start Date Encounter Closed Date Diagnosis/Indication Diagnosis SNOMED-CT Code Diagnosis ICD10 Code Diagnosis Note [id number] [facility] [address] [place], [place] [address] 01/03/2011 15:26:56 01/03/2011 16:28:14 [id number] [facility] [address] [place] [address] 04/11/2011 09:33:12 04/14/2011 14:24:09 [id number] [facility] [address] [place] [address] 12/12/2011 17:49:10 12/18/2011 12:40:49 [id number] Nona Mojica [facility] [address] [place] [address] 01/02/2012 14:30:19 01/07/2012 15:01:03 [id number] [facility] [place] [address] 02/10/2012 15:10:01 02/11/2012 14:36:50 [id number] Xiomara Griffin [facility] [address] [place] [address] 03/08/2013 14:01:24 03/12/2013 11:47:17 [id number] Xiomara Griffin [facility] [address] [place] [address] 11/04/2013 13:55:38 11/05/2013 09:28:55 Contusion of foot [id number] Follow-up encounter [id number] [facility] [place] [address] 03/24/2014 16:08:38 03/27/2014 10:19:30 Well child [id number] Xiomara Griffin [facility] [address] [place] [address] 05/18/2014 10:22:30 05/19/2014 09:28:40 Panic attack [id number] SONIA BERTRAND [facility] [address] [address] [place] [address] 08/30/2014 15:44:02 08/31/2014 15:21:02 Acute upper respiratory infection 48574146 Upper resp iratory infection 70617176 [id number] Janneth Johnson [facility] [address] [place] [address],[facility] [address] [place] [address] 03/28/2015 14:58:29 03/29/2015 12:04:41 Well child [id number] Sarai Campos [facility] E [address] [place] [address],[facility] [address] [place] [address] 09/17/2016 13:56:14 09/22/2016 09:24:24 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 Will start methylphen idate ER 18 mg. Discussed how to take, side effects. Call in 1 week with update. May need to increase med at thiat time. Followup to office in 6 months. [id number] SONIA BERTRAND [facility] E [address] [place] [address],[address] [address] 10/15/2016 11:12:31 10/16/2016 13:34:28 Pain of nose 248403238 J34.89 Nose pain s/p contusion to nose less than one week ago. Patient was hanging out of her car window and came up and hit the outside of her car door . No LOC. No epitaxis. Used motrin x1 without relief. Education given. Safety discussed. RICE therapy recommende d. [id number] SONIA BERTRAND [facility] E [address] [place] [address],[address] [address] 10/24/2016 11:19:55 10/25/2016 10:18:34 Generalized anxiety disorder 81498783 F41.1 Anxiety:Co unseling strongly advised. Written education given regarding medication s, hydration, side effects and effectiven ess. Follow up in 3 weeks without fail. Acute sinusitis 11193428 J01.90 Sinusitis- Symptoms greater than 2 weeks with fever. Take oral antibiotic s as written. Rest. Drink plenty of fluids. F/U if no improvemen t in 48-72 hours. May have Tylenol or Ibuprofen for fever. May use nasal saline to relieve congestion . May have honey based cough syrup as needed for cough. [id number] SONIA BERTRAND [facility] [address] [place] [address] 02/04/2018 14:04:04 02/08/2018 09:17:02 Well child 199839635 Z00.129 Well adolescent - appropriat e for growth and developmen tTrinh Contrerasato ry guidance was given to patient/aly collins. RTC [...] today. Initial pr escription of oral contraception 152900578 Z30.011 Control: Patient wishes to start oral control with this cycle. Patient instructed to start pills on thursday after start of menses. Patient instructed to use back up method the first week of starting the pill. Patient education given regarding prevention of STDs. Patient verbalized understand ing. Anxiety disorder 2585918 06 F41.9 Intermitte nt anxiety attacks. Has tried depression medication without resolve. Strongly suggested counseling . Will trial new med, prn. [id number] Sarai Campos [facility] [address] [place] [address] 02/16/2018 14:05:25 02/17/2018 16:02:08 Abscess of axilla 98714196 L02.411 Simple I&D done in office, see procedure note. Wash well with soap and water, apply Mupirocin twice daily. Clindamyci n as prescribed . Culture sent, will call with results. Ibuprofen for pain. Call with any new concerns or no improvemen t. [id number] Derrell Medina [facility] [address] [place] [address],[address] [address] 08/06/2018 16:52:58 08/09/2018 17:39:43 Acute upper respiratory infection 03018169 J06.9 Mild sx, care as needed. Acne 40402513 L70.9 Large zit in R outer ear as source of her discomfort . Reactive lymphadenopathy 108761857 R59.1 Due to URI and ear lesion. Will recheck in 3 weeks. Abnormal weight loss 267 168409 R63.4 She will increase intake and keep track on a calorie tracker ap, then RTC in 3 weeks to recheck. If not gaining, plan labs as she is down more than 10 lbs. 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 Thoracic back pain 84681 8004 M54.6 [id number] SONIA BERTRAND [facility] [address] [place] [address] 02/09/2019 14:29:04 03/15/2019 09:39:27 Uses depot contraception 085193513 Z30.013 Control: Patient wishes to start oral control with this cycle. Discussed all control options. Patient education given regarding prevention of STDs. Patient verbalized understand ing. [id number] SONIA BERTRAND [facility] [address] [place] [address],[address] [address] 02/11/2019 11:18:16 02/15/2019 09:21:36 Streptococcal sore throat 45175703 J02.0 Strep Throat: Take antibiotic s as written. Drink plenty of fluids. Purchase a new toothbrush in 48 hours after starting antibiotic s. Call the office if symptoms do not improve in 48-72 hours. Take Tylenol or Motrin for pain/fever . [id number] SONIA DEAL [facility] [address] [place] [address] 04/15/2019 14:13:56 04/18/2019 17:19:11 Nausea 711996315 R11.0 No emesis, exam is reassuring . Recommend bland diet, RTC if changes or worsening. [id number] SONIA BERTRAND [facility] [address] [address] 05/04/2019 14:35:12 05/05/2019 10:00:08 Streptococcal sore throat 51091851 J02.0 Strep Throat: Take antibiotic s as written. Drink plenty of fluids. Purchase a new toothbrush in 48 hours after starting antibiotic s. Call the office if symptoms do not improve in 48-72 hours. Take Tylenol or Motrin for pain/fever . [id number] Derrell Medina MD PEDIATRIC [address] [address] 05/06/2019 14:13:50 05/09/2019 11:41:17 Streptococcal sore throat 16022227 J02.0 Strep Throat: continue to take antibiotic [...] Casanova Member ID Guarantor Name 02/09/2019 1 [facility] [id number] Rogelio Horn [id number] Silas Horn 02/11/2019 1 [facility] [id number] Rogelio Horn [id number] Silas Horn 04/15/2019 1 [facility] [id number] 0003 Rogelio Horn [id number] Silas Horn 05/04/2019 1 [facility] (MEDICAID HMO) [id number] Rogelio Horn [id number] Silas Horn 05/06/2019 1 [facility] (MEDICAID HMO) [id number] 0003 [facility] Colby Horn [id number] Silas Horn Notes Date Note Type Note Provider Name and Address Organization Details Recorded Time 02/09/2019 text/html Here to discuss depo. Here with mother. Sexually active. Does not want to get - and would like to discuss options. Uses condoms- occasionally. Denies STD's or STD like symptoms. Denies fever. Not good at taking pills on a regular basis- forgetful. SONIA BERTRAND [address] [facility] [address], [address], [facility], 03/10/2019 13:54:19 02/11/2019 text/html Sore ThroatRepor sabrina bypatient.Throat Symptomshurts to swallow Upper respiratory symptomscough;nasal congestion/stuffy nose;nasal discharge Duration:started (sx's started yesterday.) Feverno fever (does not know.) Vomitingvomiting diarrheano diarrhea Headacheheadache Abdominal painabdominal pain SONIA BERTRAND 4 [facility] [address], [address], [facility], 02/11/2019 12:05:05 04/15/2019 text/html Generic HPI TemplateReported [...] soft brown. Denies blood. SONIA DEAL [address] [facility] [address], [place], [address], [facility], 04/15/2019 15:24:58 05/04/2019 text/html Sore ThroatRepor sabrina bypatient.Throat Symptomshurts to swallow Upper respiratory symptomscough;nasal congestion/stuffy nose;nasal discharge Duration:1 days Feverno fever Vomitingno vomiting diarrheano diarrhea Headacheheadache Abdominal painabdominal pain Context:normla sleep; normal appetite SONIA BERTRAND [address] [facility] [address], [place], [address], [facility], 05/04/2019 15:11:41 05/06/2019 text/html Upper Respirator y SymptomsReported bypatient.Location:[facility] Quality:cough;congeste d;hacking cough;hurts to swallow;throat pain Severity:mild [...] that concerns her. Derrell Medina MD [address] [facility] [address], [place], [address], [facility], 05/06/2019 14:42:50 OBGyn Episode No OBEpisode recorded.
--- OUTSIDE RECORDS SUMMARY | 2024-10-10 14:24 | XMS_ITS | Referral Summary ---
Author Organization [facility] Address [address] [place] [address] Care Team Providers Care Central Station Operator Name Role Phone Anjelica Vasquez MD Unavailable Geraldine Bauman Primary Care Provi chester Tremayne Lo PT Unavailable Unavailable Allergies No known active allergies Medications medroxyPROGEST ERone 150 mg/mL injection Inject 1 ml (150 mg) intramuscularly every 3 months 06/25/20 22 Active SUMAtriptan (IMITREX) 50 mg tablet TAKE 1 TABLET AT ONSET OF MIGRAINE MAY REPEAT DOSE 1 TIME AFTER AT LEAST 2 HOURS 09/02/19 24 Active cetirizine (ZyrTEC) 10 mg tablet Take 1 tablet (10 mg total) by mouth daily 10/13/19 24 Active fluticasone propionate (FLONASE) 50 mcg/actuation nasal spray USE 1 SPRAY(S) IN EACH NOSTRIL ONCE DAILY 10/13/19 24 Active metroNIDAZOLE (FLAGYL) 500 mg tablet Take 1 tablet (500 mg total) by mouth 2 (two) times a day 12/17/19 24 Active dextroamphetam ine-amphetamin e XR (ADDERALL XR) 10 mg 24 hr capsule Take 1 capsule (10 mg total) by mouth daily 12/11/19 24 Active meloxicam (MOBIC) 15 mg tabletIndicati ons:Chronic pain of left knee,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 Take with food 30 tablet 1 12/31/19 24 Active escitalopram (LEXAPRO) 20 mg tablet Take 1 tablet (20 mg total) by mouth daily 01/18/20 24 Active LORazepam (ATIVAN) 1 mg tablet Take 1 tablet (1 mg total) by mouth daily as needed 01/18/20 24 Active cyclobenzaprin e (FLEXERIL) 5 mg tablet Take 1 tablet (5 mg total) by mouth 2 (two) times a day as needed 03/03/20 24 Active azelastine (ASTELIN) 137 mcg (0.1 %) nasal spray Administer 1 spray into each nostril 2 (two) times a day Active Active Problems Problem Noted Date Diagnosed Date Migraine without aura 11/02/2023 Molluscum contagiosum infection 11/02/2023 Panic attack 11/02/2023 Cervical mass 01/21/2023 Overview (01/29/2024): -Pap smear 06/25/22: NILM -Had AUB following pap, started on DMPA 09/2022 w/ no resolution -US 12/2022 that showed cervical mass measuring 1.5x1.4x1.9cm, otherwise normal b/l ovaries and uterus. -MRI 12/31/22 with soft tissue mass 0.8x0.7x1.6cm in endocervical canal, stromal invasion 0.3cm -Clinic visit 01/21/23: Reviewed imaging. Pap smear ASCUS/HPV-. 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 -PET 01/2023 w/ likely physiologic cervical uptake -Follow-up 05/2023 w/ normal exam. Discussed work-up to this date benign, will follow-up for subsequent exam in 3 mths and repeat pap 1 year from colpo. -F/u 09/25/23 w/ normal colposcopy. -Pap 01/29/24 today, exam WNL Plan -Follow-up on pap. 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 Vasquez (endo) Assessment & Plan (12/07/2019 1:04 PM CDT): Discussed/ordered labs, Condition is stable encouraged healthy, low carbohydrate lifestyle and at least 150min/week of exercise, continue on levothyroxine 25mcg daily. Pt sees Dr. Alvarez (elie). Agoraphobia 12/07/2019 Assessment & Plan (12/07/2019 1:24 PM CDT): Patient reiterated no suicidal thoughts at this time; take medication as directed; contact 911 and go to the ER if becomes suicidal; discussed side effects of medication with patient; encouraged healthy diet and exericise; encouraged patient to see a counselor Discussed/ordered labs, Condition is worsening encouraged healthy, low carbohydrate lifestyle and at least 150min/week of exercise, was previously on zoloft 50mg a year ago and took it for 6 mo and then stopped it due to lack of insurance. She tried going back on it a couple weeks ago but it made her feel weird so she stopped it after 1 dose. We will trial pt on lexapro 10mg daily. Would like pt to take it daily consistently at the same time every day. We will refer to psychiatry 1 mo follow up Attention deficit hyperactiv ity disorder (ADHD), predominantly inattentive type 12/07/2019 Assessment & Plan (12/07/2019 1:19 PM CDT): Discussed/ordered labs, Condition is worsening encouraged healthy, low carbohydrate lifestyle and at least 150min/week of exercise, she used to be on focalin and ritalin. It has been about 4 years since she has been on anything. She needs to take her GED but can't focus long enough to be able to prepare/take the test. We will refer to psychiatry. Anxiety 12/07/2019 Assessment & Plan (12/07/2019 1:24 PM CDT): Patient reiterated no suicidal thoughts at this time; take medication as directed; contact 911 and go to the ER if becomes suicidal; discussed side effects of medication with patient; encouraged healthy diet and exericise; encouraged patient to see a counselor Discussed/ordered labs, Condition is worsening encouraged healthy, low carbohydrate lifestyle and at least 150min/week of exercise, was previously on zoloft 50mg a year ago and took it for 6 mo and then stopped it due to lack of insurance. She tried going back on it a couple weeks ago but it made her feel weird so she stopped it after 1 dose. We will trial pt on lexapro 10mg daily. Would like pt to take it daily consistently at the same time every day. We will refer to psychiatry 1 mo follow up Resolved Problems Problem Noted Date Diagnosed Date Resolved Date Acute conjunctivitis 11/02/2023 024 Acute sinusitis 11/02/2023 03/11/2024 Acute upper respiratory infection 11/02/2023 03/11/2024 Contusion of foot 11/02/2023 03/11/2024 Acute pain of right shoulder 05/07/2021 05/07/2021 Immunizations Immunization Administration Dates Next Due DTaP 04/09/2006, 2,01/01/2001,2000 ,2000 Hep A, Pediatric 03/08/2013,02/10/2012 Hep B / HiB 01/01/2001 Hep B, Adolescent or Pediatric 2000,1999 HiB 08/26/2001,2000,2000 IPV 04/09/2006,08/26/2001,2000 ,2000 Influenza LAIV (Nasal) 06/08/2008 Influenza, Unspecified 08/07/2021(Deferr ed: Patient Refused),05/07/2021(Deferred: Patient Refused),05/17/2020(Deferred: Patient decision),05/09/2020(Deferred: Patient Refused),05/07/2020(Deferred: Patient Refused),05/17/2019(Deferred: Parental decision) MMR 04/09/2006,08/26/2001 Meningococcal Conjugate (Menveo) 02/04/2018,01/31 Pneumococcal Conjugate 7-Valent 08/26/2001,01/01,2000,2000 Tdap 02/10/2012 Varicella 02/10/2012,08/26/2001 Social History Tobacco Use Types Packs/Day Years [...] staff should administer the PHQ-9) 0 05/07/2021 Hunger Vital Sign Answer Date Recorded Within the past 12 months, y ou worried that your food would run out before you got the money to buy more. Patient declined Within the past 12 months, t he food you bought just didn't last and you didn't have money to get more. 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 Gender Identity Not on file Sexual Orientation Not on file Last Filed Vital Signs Vital Sign Reading Time Taken Comments Blood Pressure 105/72 03/11/2024 8:22 AM CDT Pulse 95 03/11/2024 8:22 AM CDT Temperature 37.2 C (99 F) 01/29/2024 1:10 PM CDT Respiratory Rate 16 11/02/2023 12:07 PM CDT Oxygen Saturation 100% 01/29/2024 1:10 PM CDT Inhaled Oxygen Concentration - - Weight 57 kg (125 lb 11.2 oz) 03/11/2024 8:22 AM CDT Height 160 cm (5' 3 ) 03/11/2024 8:22 AM CDT Body Mass Index 22.27 03/11/2024 8:22 AM CDT Plan of Treatment Not on file Procedures Procedure Name Priority Date/Time Associated Diagnosis Comments HIGH RISK HPV DNA DETECTION WITH GENOTYPING Routine 01/29/2024 1:33 PM CDT HEPATITIS PANEL, ACUTE Routine 08/14/2021 2:05 PM RUBBER PRINTING MACHINE OPERATOR Routine screening for STI (sexually transmitted infection) from Last 3 Months or Most Recently Relevant to Health Maintenance Results * High Risk HPV DNA Detection with Genotyping (Molecular component) (01/29/2024 1:33 PM CDT) HPV HR 16 Not Detected Not Detected [facility] HPV HR 18 Not Detected Not Detected DELIA VALE HPV HR Non 16/18 Not Detected Not Detected DELIA [facility] Comment: Interpretive Data Nucleic acid amplification for detection of high-risk Human Papilloma virus (HPV) is performed by the Misty Mac 6800 HPV test. This assay specifically detects HPV-16 and HPV-18 genotypes. The following HPV genotypes are detected as high-risk HPV: HPV-31, 33, 35, ,39, 45, 51, 52, 56, 58, 59, 66, and 68. This assay has been approved by the [place] Food and Drug Administration for detection of HPV in cervical specimens collected by a physician using an endocervical brush/spatula or cervical broom and placed in the ThinPrep Pap Test PreservCyt collection containers. The performance characteristics of this test have been verified by the [facility] Molecular Infectious Disease laboratory. Correlate with separately reported cytology results, as applicable. Interpretive data last revised 23 Endocervical 01/29/2024 1:33 PM CDT 02/02/2024 9:37 AM CDT us Angelica Harmon MD LAB BODY FLUIDS AND STO OLS ORDERABLES Final Result DELIA [facility]E [facility] Department [place] [address] [facility] * Hepatitis panel, acute (08/14/2021 2:05 PM RUBBER PRINTING MACHINE OPERATOR) Hep A IgM Nonreactive Nonreactive DELIA GIL (MARGARITA) Comment: Interpretive Data: If Hep A IgM Ab is reported as Equivocal, a new sample should be drawn in two weeks for testing. Current interpretive data was last revised on 19. Testing performed by: [facility], [address] [place] [address]., [id number] Hep B core IgM Nonreactive Nonreactive Koby GIL (MARGARITA) Comment: Interpretive Data If HepB Core IgM Ab is reported as Equivocal, a new sample should be drawn in two weeks for testing. Current interpretive data was last revised on 19. Testing performed by: [facility], [address] [place] [address]., [id number] Hep C Ab Nonreactive Nonreactive DELIA GIL (MARGARITA) Comment: Interpretive Data Nonreactive: Antibodies to HCV not detected. Does NOT exclude the possibility of recent exposure to HCV. Equivocal: Equivocal for HCV antibodies. Supplemental molecular testing will be automatically performed to determine infection status in accordance with current CDC screening recommendations. Reactive: Positive for HCV antibodies. This may represent current or past HCV infection. Supplemental molecular testing will be automatically performed to determine current infection status in accordance with current CDC screening recommendations. Interpretive data was last revised on 2019. Testing performed by: [facility], [address] [place] [address]., [id number] HepBsAg Nonreactive Nonreactive DELIA GIL (MARGARITA) Comment:Testing performed by : [facility], [address] [place] [address]., [id number] Blood 08/14/2021 2:05 PM RUBBER PRINTING MACHINE OPERATOR 08/15/2021 9:13 AM RUBBER PRINTING MACHINE OPERATOR Patito Guerrero NP LAB MICROBIOLOGY - GENERAL ORDERABLES Final Result DELIA GIL (MARGARITA) 1 [facility] [place] [address] from Last 3 Months or Most Recently Relevant to Health Maintenance Insurance [employer] [facility] Care Teams Central Station Operator Relationship Specialty [place] [address] [place] [address] PCP - General 10/12/21 Anjelica Vasquez MD Endocrinology 12/07/19 Tremayne Lo, PT Physical Therapist Physical Therapy 06/20/22
--- OUTSIDE RECORDS SUMMARY | 2024-10-10 14:24 | XMS_ITS | Clinical Summary ---
Author Organization [facility] Address [address] [place] [address] Care Team Providers Care Electrical Tryout Person Name Role Phone Anjelica Vasquez MD Unavailable [...] (10/21/2021): Added automatically from request for surgery [id number] Closed fracture of nasal bones 10/21/2021 Overview (10/21/2021): Added automatically from request for surgery [id number] Hypothyroidism 10/01/2021 Vitamin D deficiency 08/15/2021 Vic's [...] Conjugate 7-Valent 08/26/2001,01/01,2000,2000 Tdap 02/10/2012 Varicella 02/10/2012,08/26/2001 Medical History Medical History Date Comments Vic's disease Agoraphobia Adhd Autoimmune disease Anxiety Seasonal allergies Family History Medical History Relation Name Comments Hypertension Father Hypertension Maternal Grandfather Hypertension Maternal Grandmother Hypertension Mother Diabetes Paternal Grandfather Hypertension Paternal Grandfather Diabetes Paternal Grandmother Hypertension Paternal Grandmother Relation Name Status Comments Father Maternal Grandfather Maternal Grandmother Mother Paternal Grandfather Paternal Grandmother Social History Tobacco Use Types Packs/Day Years [...] on file 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 Gender Identity Not on file Sexual Orientation Not on file Obstetrics History Last Filed Vital Signs Vital Sign Reading [...] 03/11/2024 8:22 AM CDT Plan of Treatment Health Maintenance Due Date Last Done Comments HPV Vaccines (1 - 3-dose series) 2015 Regular Well Visit/Exam 18-64 2018 DTaP/Tdap/Td Vaccine (7 - Td or Tdap) 02/09/2022 02/10/2012, 04/09/2006, 08/26/2001, Additional history exists Depression Screening 05/07/2022 05/07/2021, 12/07/19 20 Influenza Vaccine (#1) 2024 06/08/2008 Cervical Cancer Screening 01/28/20252023, 01/29/2024, 01/21/2023 Hepatitis B Screening Completed 01/01/2001 , 2000, 2000, Additional history exists Pneumococcal vaccine <65 Completed 002, 08/26/2001, 01/01/2001, Additional history exists Varicella Vaccines Completed 02/10/2012, 08/26/2001 Hepatitis C Screening Completed 08/14/2021 Procedures Procedure Name Priority Date/Time Associated Diagnosis Comments HIGH RISK HPV DNA DETECTION WITH GENOTYPING Routine 01/29/2024 1:33 PM CDT HEPATITIS PANEL, ACUTE Routine 08/14/2021 2:05 PM LAWN MOWER SHARPENER Routine screening for STI (sexually transmitted infection) from Last 3 Months or Most Recently Relevant to Health Maintenance Results * High Risk HPV DNA Detection with Genotyping (Molecular component) (01/29/2024 1:33 PM CDT) Pathologist [facility] HPV HR 16 Not Detected Not Detected [facility] HPV HR 18 Not Detected Not Detected [facility] HPV HR Non 16/18 Not Detected Not Detected [facility] Comment: Interpretive Data Nucleic acid amplification for [...] this test have been verified by the [facility] Molecular Infectious Disease laboratory. Correlate with separately reported cytology results, as applicable. Interpretive data last revised 23 Endocervical 01/29/2024 1:33 PM CDT 02/02/2024 9:37 AM CDT us Angelica Harmon MD LAB BODY FLUIDS AND STO OLS ORDERABLES Final Result [facility] Department [place] [address] [facility] * Hepatitis panel, acute (08/14/2021 2:05 PM LAWN MOWER SHARPENER) Hep A IgM Nonreactive Nonreactive DELIA GIL (MARGARITA) Comment: Interpretive Data: If Hep A IgM Ab is reported as Equivocal, a new sample should be drawn in two weeks for testing. Current interpretive data was last revised on 19. Testing performed by: [address] [id number] Hep B core IgM Nonreactive Nonreactive Koby GIL (MARGARITA) Comment: Interpretive Data If HepB Core IgM Ab is reported as Equivocal, a new sample should be drawn in two weeks for testing. Current interpretive data was last revised on 19. Testing performed by: [address] [id number] Hep C Ab Nonreactive Nonreactive DELIA GIL [...] last revised on 2019. Testing performed by: [facility], [address] [place] [address]., [id number] HepBsAg Nonreactive Nonreactive DELIA GIL (MARGARITA) Comment:Testing performed by : [facility], [address] [place] [address]., [id number] Blood 08/14/2021 2:05 PM LAWN MOWER SHARPENER 08/15/2021 9:13 AM LAWN MOWER SHARPENER Patito Guerrero NP LAB MICROBIOLOGY - GENERAL ORDERABLES Final Result DELIA GIL (MARGARITA) [address] [facility] Department [place] [address] from Last 3 Months or Most Recently Relevant to Health Maintenance Insurance [facility] [place] [place] [address] [facility] Care Teams Electrical Tryout Person Relationship Specialty Start Date End Date Geraldine Bauman PA [address] [place] [address] PCP - General 10/12/21 Anjelica Vasquez MD Endocrinology 12/07/19 Tremayne Lo PT Physical Therapist Physical Therapy 06/20/22
[2024-10-13 02:23] LABS: Immunoglobulin A 212 mg/dL (47-310); TTG IGA AB <1.0 U/mL
== END 2024-10-10 12:31 | disposition home or self-care (01) ==
LOC: ANHLAB 12:32
PROVIDERS: PCP Physician Assistant; Visit Provider Internal Medicine Endocrinology, Diabetes & Metabolism
DX: E03.9 Hypothyroidism, unspecified (principal); R19.7 Diarrhea, unspecified; R14.0 Abdominal distension (gaseous)
CPT/HCPCS: 36415; 82784; 84439; 84443; 86364

== ENCOUNTER 2025-03-16 13:03 | Outpatient (CLI) | payer OTHER, SELFPAY ==
[2025-03-16 14:18] LABS: Free T4 Free Thyroxine 0.90 ng/dL (0.78-2.19)
[2025-03-16 14:33] LABS: Thyroid Stimulating Hormone 2.790 uIU/mL (0.465-4.680)
== END 2025-03-16 13:04 | disposition home or self-care (01) ==
LOC: ANHLAB 13:04
PROVIDERS: PCP Physician Assistant; Visit Provider Internal Medicine Endocrinology, Diabetes & Metabolism
DX: E03.9 Hypothyroidism, unspecified (principal)
CPT/HCPCS: 36415; 84439; 84443

== ENCOUNTER 2025-05-11 09:03 | Outpatient (CLI) | payer OTHER, SELFPAY ==
--- NOTE | 2025-05-22 11:36 | WPDHOLTEREM ---
Holter/Event Monitor Holter/Event Monitor Date of procedure: 05/11/25 Holter/Event Procedure: 3-7 Day Holter Monitor Indications: Tachycardia Conclusion: 1. 3 days holter monitor on 05/11/25. 2. Underlying rhythm is sinus rhythm. HR range 58-148 bpm; average HR 92 bpm. 3. There are rare premature supraventricular complexes. No supraventricular tachycardia. 4. There are occasional premature ventricular complexes and rare ventricular couplets, longest ventricular bigeminy was 12 minutes and 44 seconds, and longest ventricular trigeminy was 2 minutes and 25 seconds. No ventricular tachycardia. 5. No significant pauses greater than 3 seconds. 6. Patient reports 11 episodes of symptoms of fluttering, shortness of breath, irregular beats, heart racing, lightheadedness which demonstrate sinus rhythm with HR range 90-123 bpm with 10 episodes with PVC's.
== END 2025-05-11 09:04 | disposition home or self-care (01) ==
LOC: ANHCARD 09:05
PROVIDERS: PCP Physician Assistant; Visit Provider Physician Assistant
DX: I49.1 Atrial premature depolarization (principal); I49.3 Ventricular premature depolarization; R00.8 Other abnormalities of heart beat
CPT/HCPCS: 93242

== ENCOUNTER 2025-06-13 13:20 | Outpatient (CLI) | payer OTHER, SELFPAY ==
--- NOTE | ~2025-06-13 | XR_ITS ---
EXAMINATION: XR hand RT min 3V, 06/13/2025 13:30 REGULATORY AFFAIRS DIRECTOR HISTORY: S69.91XA - Unspecified injury of right wrist, hand and fi... COMPARISON: No comparisons available. Findings: No acute fracture or malalignment. No significant degenerative changes. Soft tissues unremarkable. Impression: No acute fracture or malalignment. Reviewed, dictated and finalized at location P. LATORY AFFAIRS DIRECTOR Impression: No acute fracture or malalignment.
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
--- OUTSIDE RECORDS SUMMARY | 2025-06-13 08:35 | XMS_ITS | Encounter Summary ---
Author Organization [facility] Address [address] [place] [address] Care Team Providers Care Filtration Plant Operator Name Role Phone Anjelica Vasquez MD Unavailable [phone] Tremayne Lo PT Unavailable Unavailable Maki Jain Primary Care Pr ovider Reason for Visit * Diagnostic Imaging (Routine) - Closed Specialty Diagnoses / Procedures Referred By Karlene mandujano Referred To Contact Diagnoses Right hand pain Procedures XR Hand Right 3+ Vw Roslyn Hernandez NP [address] [place] [phone] Phone: tel: [facility] Referral ID Status Reason Start Date Expiration Date Visits Re quested Visits Authorized [id number] Closed 06/13/2025 07/13/2026 1 1 Encounter Details Date Type Department Care Team (Latest Contact Info) Description 06/13/2025 8:35 AM REFERENCE DATA EXPERT Ancillary Procedure [facility] Imaging at [address] [address] Right hand pain Social History Tobacco Use Types Packs/Day Years [...] on file Legal Sex Female 11:11 AM REFERENCE DATA EXPERT Gender Identity Not on file Sexual Orientation Not on file documented as of this encounter Functional Status documented as of this encounter Plan of Treatment Not on file documented as of this encounter Procedures Procedure Name Priority Date/Time Associated Diagnosis Comments XR HAND RIGHT 3 OR MORE VIEWS Schedule VERONIKA, Read VERONIKA (Appt Today, Awaiting Results) 06/13/2025 8:38 AM REFERENCE DATA EXPERT Right hand pain documented in this encounter Results * XR Hand Right 3+ Vw (06/13/2025 8:38 AM REFERENCE DATA EXPERT) Anatomical Region Laterality Modality Upper Extremities, Hand Right Digital Radiography 06/13/2025 9:44 AM REFERENCE DATA EXPERT Impressions 06/13/2025 9:44 AM REFERENCE DATA EXPERT No acute osseous abnormality. Electronically signed by: Dominic Reardon M.D. Narrative 06/13/2025 9:44 AM REFERENCE DATA EXPERT EXAMINATION/TECHNIQUE: XR WRIST RIGHT 3 OR MORE [...] signed by: Dominic Reardon M.D. Roslyn Hernandez MANAGER DATA WAREHOUSE IMG XR PROCEDURES Final Result documented in this encounter Visit Diagnoses Diagnosis Right hand pain Pain in soft tissues of limb documented in this encounter Care Teams Filtration Plant Operator Relationship Specialty Start Date End Date Maki Jain PA [address] [place] [address] PCP - General Physician Trucker Hand 06/13/25 Anjelica Vasquez MD Endocrinology 12/07/19 Tremayne Lo, PT Physical Therapist Physical Therapy 06/20/22 documented as of this encounter
--- OUTSIDE RECORDS SUMMARY | 2025-06-13 08:40 | XMS_ITS | Encounter Summary ---
Author Organization [facility] Healthcare Address [address] [place] [address] Care Team Providers Care Phytopathologist Name Role Phone Anjelica Vasquez MD Unavailable Tremayne Lo PT Unavailable Unavailable Maki Jain Primary Care Pr ovider Encounter Details Date Type Department Care Team (Latest Contact Info) Description 06/13/2025 8:40 AM SPRING FORGER Ancillary Procedure [facility] Imaging at [address] [address] Right hand pain Social History [...] on file Legal Sex Female 11:11 AM SPRING FORGER Gender Identity Not on file Sexual Orientation Not on file documented as of this encounter Functional Status documented as of this encounter Plan of Treatment Not on file documented as of this encounter Procedures Procedure Name Priority Date/Time Associated Diagnosis Comments XR WRIST RIGHT 3 OR MORE VIEWS Schedule VERONIKA, Read VERONIKA (Appt Today, Awaiting Results) 06/13/2025 8:38 AM SPRING FORGER Right hand pain documented in this encounter Results * XR Wrist Right 3+ Vw (06/13/2025 8:38 AM SPRING FORGER) Anatomical Region Laterality Modality Upper Extremities, Wrist Right Digital Radiography 06/13/2025 9:44 AM SPRING FORGER Impressions 06/13/2025 9:44 AM SPRING FORGER No acute osseous abnormality. Electronically signed by: Dominic Reardon M.D. Narrative 06/13/2025 9:44 AM SPRING FORGER EXAMINATION/TECHNIQUE: XR WRIST RIGHT 3 OR MORE [...] signed by: Dominic Reardon M.D. Roslyn Hernandez OIL DISTRIBUTOR IMG XR PROCEDURES Final Result documented in this encounter Visit Diagnoses Diagnosis Right hand pain Pain in soft tissues of limb documented in this encounter Care Teams Phytopathologist Relationship Specialty Start Date End Date Maki Jain PA [address] [place] [address] PCP - General Physician Plant Technician 06/13/25 Anjelica Vasquez MD Endocrinology 12/07/19 Tremayne Lo PT Physical Therapist Physical Therapy 06/20/22 documented as of this encounter
--- OUTSIDE RECORDS SUMMARY | 2025-06-13 13:25 | XMS_ITS | Encounter Summary ---
Author Organization [facility] Healthcare Address [address] [place] [address] Care Team Providers Care Family Law Specialist Name Role Phone Anjelica Vasquez MD Unavailable Geraldine Bauman Primary Care Provi chester Tremayne Lo PT Unavailable Unavailable Maki Jain Primary Care Pr ovider Encounter Details Date Type Department Care Team (Late st Contact Info) Description 01/02/2023 Community Orders [facility] EpicCare Link Geraldine Bauman PA [address] [place] [address] Cervical mass (Primary Dx) Social [...] on file Legal Sex Female 11:11 AM VEHICLE MAINTENANCE SUPERVISOR Gender Identity Not on file Sexual Orientation Not on file documented as of this encounter Plan of Treatment Not on file documented as of this encounter Visit Diagnoses Diagnosis Cervical mass- Primary Other specified noninflammatory disorder of cervix documented in this encounter Additional Health Concerns Infection Onset Date Last Indicated Resolved Time COVID: Suspected 09/09/2023 09/09/2023 09/09/2023 9:19 PM VEHICLE MAINTENANCE SUPERVISOR COVID: Suspected 11/02/2023 11/02/2023 11/02/2023 12:32 PM CDT COVID: Suspected 11/02/2023 11/02/2023 11/02/2023 8:08 PM CDT documented as of this encounter Care Teams Family Law Specialist Relationship Specialty Start Date End Date Geraldine Bauman PA [address] [place] [address] PCP - General 10/12/21 06/12/25 Maki Jain PA [address] [place] [address] PCP - General Physician Head Baker 06/13/25 Anjelica Vasquez MD Endocrinology 12/07/19 Tremayne Lo PT Physical Therapist Physical Therapy 06/20/22 documented as of this encounter
--- OUTSIDE RECORDS SUMMARY | 2025-06-13 13:25 | XMS_ITS | Encounter Summary ---
Author Organization [facility] Healthcare Address [address] [place] [address] Care Team Providers Care Residential Real Estate Agent Name Role Phone Anjelica Vasquez MD Unavailable Tremayne Lo PT Unavailable Unavailable Maki Jain Primary Care Pr ovider Encounter Details Date Type Department Care Team (Late st Contact Info) Description 06/13/2025 Results Follow-Up [facility] Convenient Care at [place] [phone] Roslyn Hernandez NP [address] [place] [address] [address] [place] [address] XR Wrist Right 3+ Vw Social History Tobacco Use Types Packs/Day Years [...] on file Legal Sex Female 11:11 AM DETECTIVE YOUTH BUREAU Gender Identity Not on file Sexual Orientation Not on file documented as of this encounter Functional Status documented as of this encounter Plan of Treatment Not on file documented as of this encounter Visit Diagnoses Not on filedocumented in this encounter Care Teams Residential Real Estate Agent Relationship Specialty Start Date End Date Maki Jain PA [address] [place] [address] PCP - General Physician Chick Sexer 06/13/25 Anjelica Vasquez MD Endocrinology 12/07/19 Tremayne Lo, PT Physical Therapist Physical Therapy 06/20/22 documented as of this encounter
--- OUTSIDE RECORDS SUMMARY | 2025-06-13 13:26 | XMS_ITS | Clinical Summary ---
Author Organization [facility] Address [address] [place] [address] Care Team Providers Care Clerk Of Works Name Role Phone Anjelica Vasquez MD Unavailable Tremayne Lo PT Unavailable Unavailable Maki Jain Primary Care Pr ovider Allergies No known active allergies Medications medroxyPROGEST [...] food 30 tablet 1 12/31/19 24 Active Additional Information Patient not taking.Reported on 06/13/2025 escitalopram (LEXAPRO) 20 mg tablet Take 1 tablet (20 mg total) by mouth daily 01/18/20 24 Active cyclobenzaprin e (FLEXERIL) 5 mg tablet Take 1 tablet (5 mg total) by mouth 2 (two) times a day as needed 03/03/20 24 Active azelastine (ASTELIN) 137 mcg (0.1 %) nasal spray Administer 1 spray into each nostril 2 (two) times a day Active propranolol LA (INDERAL LA) 60 mg 24 hr capsule Take by mouth daily 05/18/20 25 Active clonazePAM (KlonoPIN) 0.5 mg tablet PLEASE SEE ATTACHED FOR DETAILED DIRECTIONS 05/08/20 25 Active propranoloL (INDERAL) 10 mg tablet TAKE 1 TABLET BY MOUTH TWICE A DAY NEEDED FOR PALPITATIONS 05/19/20 25 Active valACYclovir (VALTREX) 1 gram tablet 06/05/20 25 Active sodium chloride 1,000 mg tablet Take 1 tablet (1 g total) by mouth 2 (two) times a day 05/18/20 25 Active LORazepam (ATIVAN) 1 mg tablet Take 1 tablet (1 mg total) by mouth daily as needed 01/18/20 24 025 Discontin ued(Alter leonela therapy) Active Problems Problem Noted Date Diagnosed Date [...] (10/21/2021): Added automatically from request for surgery [id number] Closed fracture of nasal bones 10/21/2021 Overview (10/21/2021): Added automatically from request for surgery [id number] Hypothyroidism 10/01/2021 Vitamin D deficiency 08/15/2021 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 Vasquez (endo) Assessment & Plan (12/07/2019 1:04 PM CDT): Discussed/ordered labs, Condition is stable encouraged healthy, low carbohydrate lifestyle and at least 150min/week of exercise, continue on levothyroxine 25mcg daily. Pt sees Dr. Alvarez (endo). Agoraphobia 12/07/2019 Assessment & Plan (12/07/2019 1:24 [...] Acute pain of right shoulder 05/07/2021 05/07/2021 Encounters Date Type Department Care Team Description 06/13/2025 8:40 AM REHAB NURSING TECH Ancillary Procedure [facility] at [address] [phone] Right hand pain 06/13/2025 8:35 AM REHAB NURSING TECH Ancillary Procedure [facility] Imaging at [address] [phone] Right hand pain 06/13/2025 8:30 AM REHAB NURSING TECH Office Visit [facility] at [address] [phone] Roslyn Hernandez, BEAD FLIPPER Right hand pain (Primary Dx) 06/13/2025 Results Follow-Up [facility] at [address] [phone] Roslyn Hernandez, ANDREI XR Wrist Right 3+ Vw from Last 3 Months Immunizations Immunization Administration Dates Next Due DTaP [...] on file Legal Sex Female 11:11 AM REHAB NURSING TECH Gender Identity Not on file Sexual Orientation Not on file Last Filed Vital Signs Vital Sign Reading Time Taken Comments Blood Pressure 102/64 06/13/2025 8:26 AM REHAB NURSING TECH Pulse 64 06/13/2025 8:26 AM REHAB NURSING TECH Temperature 36.6 C (97.9 F) 06/13/2025 8:26 AM REHAB NURSING TECH Respiratory Rate 20 06/13/2025 8:26 AM REHAB NURSING TECH Oxygen Saturation 97% 06/13/2025 8:26 AM REHAB NURSING TECH Inhaled Oxygen Concentration - - Weight 62.1 kg (137 lb) 06/13/2025 8:26 AM REHAB NURSING TECH Height 160 cm (5' 3) 03/11/2024 8:22 AM CDT Body Mass Index 24.27 03/11/2024 8:22 AM CDT Plan of Treatment Health Maintenance Due Date Last Done Comments HPV Vaccines (1 - 3-dose series) 2015 Regular Well Visit/Exam 18-64 2018 DTaP/Tdap/Td Vaccine (7 - Td or Tdap) 02/09/2022 02/10/2012, 04/09/2006, 08/26/2001, Additional history exists Depression Screening 05/07/2022 05/07/2021, 12/07/19 Cervical Cancer Screening 01/28/20252023, 01/29/2024, 01/21/2023 Influenza Vaccine (#1) 2025 06/08/2008 Hepatitis B Screening Completed 01/01/2001 , 2000, 2000, Additional history exists Pneumococcal vaccine <65 Completed 002, 08/26/2001, 01/01/2001, Additional history exists Varicella Vaccines Completed 02/10/2012, 08/26/2001 Hepatitis C Screening Completed 08/14/2021 Procedures Procedure Name Priority Date/Time Associated Diagnosis Comments XR HAND RIGHT 3 OR MORE VIEWS Schedule VERONIKA, Read VERONIKA (Appt Today, Awaiting Results) 06/13/2025 8:38 AM REHAB NURSING TECH Right hand pain XR WRIST RIGHT 3 OR MORE VIEWS Schedule VERONIKA, Read VERONIKA (Appt Today, Awaiting Results) 06/13/2025 8:38 AM REHAB NURSING TECH Right hand pain HIGH RISK HPV DNA DETECTION WITH GENOTYPING Routine 01/29/2024 1:33 PM CDT HEPATITIS PANEL, ACUTE Routine 08/14/2021 2:05 PM REHAB NURSING TECH Routine screening for STI (sexually transmitted infection) from Last 3 Months or Most Recently Relevant to Health Maintenance Results * XR Hand Right 3+ Vw (06/13/2025 8:38 AM REHAB NURSING TECH) Anatomical Region Laterality Modality Upper Extremities, Hand Right Digital Radiography 06/13/2025 9:44 AM REHAB NURSING TECH Impressions 06/13/2025 9:44 AM REHAB NURSING TECH No acute osseous abnormality. Electronically signed by: Dominic Reardon M.D. Narrative 06/13/2025 9:44 AM REHAB NURSING TECH EXAMINATION/TECHNIQUE: XR WRIST RIGHT 3 OR MORE [...] abnormality. Electronically signed by: Dominic Reardon M.D. us Roslyn Hernandez NP [facility] XR PROCEDURES Final Result * XR Wrist Right 3+ Vw (06/13/2025 8:38 AM REHAB NURSING TECH) Anatomical Region Laterality Modality Upper Extremities, Wrist Right Digital Radiography 06/13/2025 9:44 AM REHAB NURSING TECH Impressions 06/13/2025 9:44 AM REHAB NURSING TECH No acute osseous abnormality. Electronically signed by: Dominic Reardon M.D. Narrative 06/13/2025 9:44 AM REHAB NURSING TECH EXAMINATION/TECHNIQUE: XR WRIST RIGHT 3 OR MORE [...] abnormality. Electronically signed by: Dominic Reardon M.D. us Roslyn Hernandez NP [facility] XR PROCEDURES Final Result * High Risk HPV DNA Detection with Genotyping (Molecular component) (01/29/2024 1:33 PM CDT) Pathologist [facility] HPV HR 16 Not Detected Not Detected [facility] HPV HR 18 Not Detected Not Detected [facility] HPV HR Non 16/18 Not Detected Not Detected [facility] Comment: Interpretive Data Nucleic acid amplification for [...] this test have been verified by the [facility] Molecular Infectious Disease laboratory. Correlate with separately reported cytology results, as applicable. Interpretive data last revised 23 Endocervical 01/29/2024 1:33 PM CDT 02/02/2024 9:37 AM CDT us Angelica Harmon MD LAB BODY FLUIDS AND STO OLS ORDERABLES Final Result [facility] Department [place] [address] [facility] * Hepatitis panel, acute (08/14/2021 2:05 PM REHAB NURSING TECH) Hep A IgM Nonreactive Nonreactive [facility] ([place]) Comment: Interpretive Data: If Hep A IgM Ab is reported as Equivocal, a new sample should be drawn in two weeks for testing. Current interpretive data was last revised on 19. Testing performed by: [facility], [address] [place] [address], [place]., [id number] Hep B core IgM Nonreactive Nonreactive [facility] ([place]) Comment: Interpretive Data If HepB Core IgM Ab is reported as Equivocal, a new sample should be drawn in two weeks for testing. Current interpretive data was last revised on 19. Testing performed by: [facility], [address] [place] [address], [place] [address] Hep C Ab Nonreactive Nonreactive DELIA GIL [...] last revised on 2019. Testing performed by: [facility], [address] [place] [address]., [id number] HepBsAg Nonreactive Nonreactive [facility] ([place]) Comment:Testing performed by : [facility], [address] [place] [address]., [id number] Blood 08/14/2021 2:05 PM REHAB NURSING TECH 08/15/2021 9:13 AM REHAB NURSING TECH Patito Guerrero NP LAB MICROBIOLOGY - GENERAL ORDERABLES Final Result Performing Organization Address City/State/[facility] Co de Phone Number [facility] ([place]) [address] [facility] Department [place] [address] from Last 3 Months or Most Recently Relevant to Health Maintenance Insurance [employer] [facility] [place] [address] Care Teams Clerk Of Works Relationship Specialty Start Date End Date Maki Jain PA [address] [place] [address] PCP - General Physician Dry Kiln Worker 06/13/25 Anjelica Vasquez MD Endocrinology 12/07/19 Tremayne Lo PT Physical Therapist Physical Therapy 06/20/22
== END 2025-06-13 13:21 | disposition home or self-care (01) ==
PROVIDERS: PCP Physician Assistant; Visit Provider Physician Assistant Surgical
DX: S69.91XA Unspecified injury of right wrist, hand and finger(s), initial encounter (principal); X58.XXXA Exposure to other specified factors, initial encounter
CPT/HCPCS: 73130